=== PATIENT | male | born 1965 | race Caucasian/White ===

== ENCOUNTER 2021-12-15 19:47 | Emergency (ER) | payer OTHER ==
[~2021-12-15] VITALS: Ht 175.3 cm; Wt 90.7 kg
[~2021-12-15 19:47] MED LIST: AMYL1CAP58; HYDR-3974 PO; LITH300T3 PO; OLAN5TAB6 PO
--- NOTE | 2021-12-15 20:20 | NUR ---
TO ER BED 13. [id number] C/O H/A X2 MONTHS. HAD GLF 2 MONTHS AGO AND INJURED HEAD. PT IS ALERT AND ORIENTED. RR EVEN AND NON LABORED. CONNECTED TO MONITOR.
[2021-12-15] MEDS ORDERED: ONDANSETRON HCL/PF 4 MG/2 ML VIAL ONE (20:37)
[2021-12-15] MEDS ORDERED: KETOROLAC TROMETHAMINE 15 MG/ML VIAL ONE (20:37)
[2021-12-15] MEDS ORDERED: IV NS 0.9% 500 ML BAG IV ONE (21:00)
[2021-12-15] MEDS ORDERED: KETOROLAC TROMETHAMINE INJ 30 MG/ML VIAL IV ONE (21:00)
[2021-12-15] MEDS ORDERED: ONDANSETRON HCL/PF 4 MG/2 ML VIAL IVP ONE (21:00)
--- NOTE | 2021-12-15 21:13 | NUR ---
IV LINE ESTABLISHED, RUPPERARM 20G
--- NOTE | 2021-12-15 21:13 | NUR ---
PT TAKEN FOR CT SCAN
--- NOTE | 2021-12-15 21:20 | NUR ---
PT RETURNED TO ER BED [address]
[2021-12-15 21:32] LABS: BASOPHILS % (AUTO) 0.8 % (0.0-2.0); EOSINOPHILS % (AUTO) 2.5 % (0.0-6.0); HEMATOCRIT 42 % (39-51); HEMOGLOBIN 14.4 g/dL (13.5-17.5); LYMPHOCYTES % (AUTO) 34.7 % (20.0-44.0); MEAN CORPUSCULAR HGB CONC 34 g/dl (31.0-36.0); MEAN CORPUSCULAR VOLUME 107 fL (80-96); MONOCYTES # (AUTO) 0.5 K/uL (0.1-1.30); MONOCYTES % (AUTO) 8.6 % (2.0-12.0); NEUTROPHILS % (AUTO) 53.4 % (43.0-81.0); PLATELET COUNT (AUTO) 160 K/uL (150-450); RED BLOOD CELL COUNT(AUTO) 3.94 MIL/uL (4.5-6.0); WHITE BLOOD COUNT (AUTO) 5.7 K/uL (4.3-11.0)
[2021-12-15 21:50] LABS: CALCIUM, SERUM 8.7 mg/dL (8.5-10.1); CREATININE 1.1 mg/dL (0.6-1.3); POTASSIUM 4.2 mmol/L (3.5-5.1)
[2021-12-15 22:01] LABS: ALBUMIN 3.3 g/dL (3.4-5.0); BILIRUBIN,DIRECT 0.3 mg/dL (0.0-0.2); BILIRUBIN,TOTAL 0.5 mg/dL (0.2-1.0); TOTAL PROTEIN, SERUM 8.3 g/dL (6.4-8.2)
[2021-12-15] MEDS ORDERED: IBUP-1957 PO (23:00)
[2021-12-15] MEDS ORDERED: IBUP-1955 PO (23:02)
--- NOTE | 2021-12-15 23:54 | NUR ---
Patient discharged to home in stable condition. Written and verbal after care instructions given. Patient verbalizes understanding of instruction. IV removed. Catheter intact and site benign. Pressure and 4x4 applied to site. No bleeding noted. pt ambulatory with a steady gait
[2021-12-16 03:14] VITALS: BP 138/96
[2021-12-16 03:38] LABS: BASOPHILS % (MANUAL) 0 % (0.0-2.0); EOSINOPHILS % (MANUAL) 2 % (0-4); LYMPHOCYTES % (MANUAL) 29 % (16-48); MONOCYTES % (MANUAL) 7 % (0-11.0); NEUTROPHILS % (MANUAL) 62 (42-76)
== END 2021-12-16 03:15 | disposition home or self-care (01) ==
LOC: ER 19:48
DX: R51.9 Headache, unspecified (principal); F10.90 Alcohol use, unspecified, uncomplicated; F32.A Depression, unspecified; F41.9 Anxiety disorder, unspecified; Z59.00 Homelessness unspecified; Z79.899 Other long term (current) drug therapy; Y90.9 Presence of alcohol in blood, level not specified
CPT/HCPCS: 99284; 96374; 70450; 96361; 96375; 85025; 80048; 80076; 36415; 85007; J2405; J7040; J1885

== ENCOUNTER 2022-02-07 14:25 | Emergency (ER) | payer OTHER ==
[~2022-02-07 14:25] MED LIST changes: +IBUP-1955 PO
--- NOTE | 2022-02-07 15:00 | NUR ---
CALLED IN TRIAGE, NO ANSWER
--- NOTE | 2022-02-07 15:30 | NUR ---
CALLED TO TRIAGE, NO RESPONSE
--- NOTE | 2022-02-07 15:38 | NUR ---
CALLED [phone] NO ANSWER.
== END 2022-02-07 15:40 | disposition left against medical advice (07) ==
LOC: ER 14:27
DX: Z53.21 Procedure and treatment not carried out due to patient leaving prior to being seen by health care provider (principal)

== ENCOUNTER 2022-02-08 18:51 | Emergency (ER) | payer OTHER ==
--- NOTE | 2022-02-08 19:49 | NUR ---
pt left before triage assessment
== END 2022-02-08 19:49 | disposition left against medical advice (07) ==
LOC: ER 18:54
DX: Z53.21 Procedure and treatment not carried out due to patient leaving prior to being seen by health care provider (principal)

== ENCOUNTER 2022-03-02 00:44 | Emergency (ER) | payer OTHER ==
[~2022-03-02] VITALS: Ht 177.8 cm; Wt 86.2 kg
[2022-03-02 01:10] VITALS: BP 126/90
[2022-03-02] MEDS ORDERED: HYDROCODONE/APAP 5/325MG TABLET PO ONE (02:00)
[2022-03-02] MEDS ORDERED: HYDROCODONE/APAP 5/325MG TABLET ONE (02:09)
[2022-03-02] MEDS ORDERED: IBUP-1957 PO (06:45)
== END 2022-03-02 07:14 | disposition home or self-care (01) ==
LOC: ER 00:45
DX: M25.561 Pain in right knee (principal); J44.9 Chronic obstructive pulmonary disease, unspecified; F31.9 Bipolar disorder, unspecified; F41.9 Anxiety disorder, unspecified; F17.200 Nicotine dependence, unspecified, uncomplicated; Z90.89 Acquired absence of other organs; Z60.2 Problems related to living alone; Z79.899 Other long term (current) drug therapy
CPT/HCPCS: 73564-TC